=== PATIENT | female | born 1965 | race Caucasian/White ===

== ENCOUNTER 2021-03-16 08:05 | Emergency (ER) | payer OTHER, MEDICAID ==
[~2021-03-16] VITALS: Ht 157.5 cm; Wt 103.0 kg
[2021-03-16 08:16] VITALS: BP 137/96
[2021-03-16] MEDS ORDERED: ketorolac tromethamine 15mg/ml inj. IM ONE (09:25)
[2021-03-16] MEDS ORDERED: diphenhydrAMINE 50 mg/ml inj IM ONE (09:25)
[2021-03-16] MEDS ORDERED: HYDROcodone/acetaminophen 10/325mg tab PO ONE (09:30)
[2021-03-16] MEDS ORDERED: HYDR-3965 PO (09:32)
[2021-03-16] MEDS ORDERED: ACYC-129 PO (09:32)
== END 2021-03-16 10:21 | disposition home or self-care (01) ==
LOC: ER 08:05
DX: B02.9 Zoster without complications (principal); M25.512 Pain in left shoulder; Z88.0 Allergy status to penicillin; Z88.1 Allergy status to other antibiotic agents; Z79.2 Long term (current) use of antibiotics
CPT/HCPCS: 73030; 99283